=== PATIENT | female | born 1995 | race Hispanic/Latino ===

== ENCOUNTER 2018-09-10 14:30 | Emergency (ER) | payer BC ==
--- NOTE | 2018-09-10 16:01 | ULT ---
PELVIC SONOGRAM WITH TRANSVAGINAL IMAGING AND DUPLEX EVALUATION: HISTORY: Vaginal bleeding. FINDINGS: The urinary bladder is decompressed. The uterus is retroverted with a heterogeneous echotexture and measures up to 7.7 cm. The endometrium is 1.9 cm. No free fluid. The right ovary is 3.5 cm and the left is 3.3 cm. Each contains follicles and demonstrates good colo r and spectral Doppler flow. IMPRESSION: Retroverted uterus. Thickened endometrium (1.9 cm). No evidence of intrauterine gestation. No othe r significant abnormalities. POS: [facility]
--- NOTE | 2018-09-11 00:07 | CON ---
DATE OF CONSULTATION: 09/10/2018 CHIEF COMPLAINT: Vaginal bleeding with positive test. HISTORY OF PRESENT ILLNESS: The patient is a 22-year-old G2, P1 female with a positive test last Monday, who is presenting with a 1-day history of vaginal bleeding. The patient was transferred from [place] to [facility] for further evaluation and concern of a possible ectopic. For this purpose, IMAGING TECH was consulted. The patient reports that she had a positive test on Monday and came in because she started having some bleeding and mild abdominal pain that has resolved since the time of my evaluation. She reports that during her ER visit, she started having some increased pelvic cramping and went to the bathroom and passed some tissue and now is feeling much better. She denies any significant pain. She denies nausea, vomiting, illness, fever, trauma, fall, headache, chest pain , or dizziness. PAST MEDICAL HISTORY: Negative. PAST SURGICAL HISTORY: She had a vaginal abscess and a cyst removed from her right chest. SOCIAL HISTORY: Denies drug, alcohol, or tobacco use. ALLERGIES: NO KNOWN DRUG ALLERGIES. MEDICATIONS: None. PHYSICAL EXAMINATION: VITAL SIGNS: Blood pressure 109/78, pulse is 75, respiratory rate of 18, temperature 99, pain 0. GENERAL: She appears to be in no acute distress. She is alert and oriented, cooperative, and pleasant to interact with. HEENT: Head is normocephalic, atraumatic. LUNGS: Clear to auscultation bilaterally. HEART: Regular rate and rhythm. ABDOMEN: Soft and nontender to light or deep palpation in her abdomen and pelvis. EXTREMITIES: Nontender and nonedematous. : Exam has been deferred. She did show the tissue that was passed at that time just prior to my evaluation, which is difficult to assess whether it is products of conception or endometrium. LABORATORY DATA: quant hcg is 7000. White count is 5.2, hemoglobin 13.8, hematocrit 41.5, platelets of 239,000. Pelvic ultrasound demonstrates a retroverted uterus measuring up to 7.7 cm with an endometrium of 1.9 cm and no free fluid. Shows a right ovary of 3.5 cm, left ovary of 3.3 cm, both containing follicles and no other pelvic mass is seen. No free fluid seen. ASSESSMENT AND PLAN: The patient is a 22-year-old female with an abnormal and likely an incomplete AB in the process of spontaneous completion. The patient at the time of my evaluation, had no symptoms of pain. She is having bleeding like a period. She reported she had some increasing cramping that resolved after passing some tissue. The tissue has been sent to Pathology for review. The patient has been given the option given her lack of symptoms of discharge home with expectant management to follow up in 2 days for quantitative HCG or to return should she begin experiencing strong pelvic pain versus observation here in the hospital overnight for serial exams. The patient has opted to go home. She reports that she will get back should she have worsening abdominal pain. She also has agreed to follow up in a couple of days for quantitative HCG there in [place] and will be contacting Dr. Fuentes for previous OB for followup. Job ID: [id number] [facility] SYSTEMHannah
== END 2018-09-10 17:45 | disposition home or self-care (01) ==
LOC: ERS 14:30
DX: O20.0 Threatened abortion (principal); Z3A.01 Less than 8 weeks gestation of pregnancy
CPT/HCPCS: 76856; 88305

== ENCOUNTER 2019-10-04 21:38 | Inpatient (IN) | payer BC ==
[2019-10-04 22:20] VITALS: BMI 23.2
[2019-10-04] MEDS: Lactated Ringer's 1,000 ML IV SCH (22:30)
[2019-10-04] MEDS ORDERED: Promethazine HCl 25 MG/ML VIAL IM PRN (22:35)
[2019-10-04] MEDS ORDERED: Ibuprofen 800 MG TAB PO PRN (22:35)
[2019-10-04] MEDS ORDERED: Acetaminophen 500 MG TAB PO PRN (22:35)
[2019-10-04] MEDS ORDERED: hydrALAZINE 20 MG/ML VIAL SLOW IVP PRN (22:35)
[2019-10-04] MEDS ORDERED: Butorphanol Tartrate 1 MG/ML VIAL SLOW IVP PRN (22:35)
[2019-10-04] MEDS ORDERED: NS / Oxytocin 40 units/1000ml 1,000 ML IV PRN (22:35)
[2019-10-04] MEDS ORDERED: Ondansetron PF 4 MG/2 ML Vial IVP PRN (22:35)
[2019-10-04] MEDS ORDERED: Lidocaine 1% (PF) 30 ML VIAL SC PRN (22:35)
[2019-10-04] MEDS ORDERED: NS w/ Oxytocin 10 units 500 ML IV SCH (22:45)
[2019-10-04 23:28] LABS: Hemoglobin 13.3 g/dL (12.0-16.0); Mean Corpuscular Hemoglobin 30.4 pg (27.0-31.0); Mean Corpuscular Volume 87.1 fL (78.0-98.0); Mean Platelet Volume 6.6 fL (7.4-10.4); Platelet Count 184 thou/uL (130-400); RBC Distribution Width 12.5 % (11.5-14.5); Red Blood Cell (RBC) Count 4.38 mill/uL (4.20-5.40)
[2019-10-05 00:06] LABS: HBSAg Index 0.16 S/CO (0-0.99); Hep B Surf Ag Non-Reactive S/CO (NonReactive); Syphilis Antibody Nonreactive (Nonreactive); Syphilis Antibody Index 0.09 S/CO (<1.00 Non-Reactive)
--- NOTE | 2019-10-05 01:40 | PDOC.FPROB ---
FMR OB H&P: HPI - History of Present Illness Chief Complaint: Leaking of fluid Indentification: 23 year old at 38.3 wks History of Present Illness: 23 year old at 38.3 wks by LMP/13.2 wk alize presents with SROM, clear fluid at 8:30 PM on 10/04. Patient denies vaginal bleeding, vaginal discharge. Endorses leaking of fluid. Endorses occasional contractions. Primary Care Physician: Alfredo FMR OB H&P: Current - Care : 3 Para: [id number] Gestational age: 38.3 wks Due date: 10/16/2019 Dating Criteria: LMP/13.2 wk sono - OB Labs Blood type: B RH: positive Antibody Screen: negative HIV: negative RPR: negative HepBsAg: negative Rubella: immune Urine drug screen: negative 1 hour gtt: 107 GBS: negative FMR OB H&P: History - Past Medical History PMH: Denies - OB History OB History: Hx SAB - [employer] History [employer] History: Denies history of STD's Cyst removal 2015 - Surgical History Sx History: Cyst removal 2015 - Social History Social History: Denies alcohol, tobacco, or drug use FMR OB H&P: Medications - Current Allergies/Adverse Reactions: Allergies Allergy/AdvReac Type Severity Reaction Status Date / Time No Known Allergies Allergy Verified 10/04/19 22:21 FMR OB H&P: ROS - Review of Systems General: denies: fever/chills, weight/appetite/sleep changes ENT: denies: nasal congestion, sore throat Cardiovascular: denies: chest pain, palpitation, edema Respiratory: denies: cough, congestion, shortness of breath Gastrointestinal: denies: nausea, vomiting Genitourinary (Female): reports: other (Loss of fluid). denies: dysuria, vaginal bleeding Musculoskeletal: denies: pain, stiffness Neurologic: denies: numbness, syncope Integumentary: denies: itching, rash Psychological: denies: depression, anxiety FMR OB H&P: Vital Signs - Maternal Vital signs: Vital Signs - First Documented Temp Pulse Resp BP Pulse Ox 98.2 F 78 16 118/72 99 10/04/19 21:58 10/04/19 21:58 10/04/19 21:58 10/04/19 21:58 10/04/19 21:58 - Heart Tones Baseline: 140 Variability: moderate Acceleration: present Deceleration: absent Category: category 1 Vivian contractions every: Q1-4 min FMR OB H&P: Physical Exam - Physical Exam General: NAD, awake, alert and oriented HEENT: MMM, grossly normal vision, grossly normal hearing Heart: RRR, pulses present General: no respiratory distress Abdomen: soft, gravid Musculoskeletal: pulses present, FROM in all four extremities Neurological: no tremor, no focal deficit Skin: no rash, capillary refill <2 seconds Psychiatric: intact recent and remote memory, good judgement and insight, normal mood and affect - Pelvic Exam SVE: /0 Presentation: Cephalic FMR OB H&P: Results - Labs Lab results: Laboratory Results - last 24 hr 10/04/19 10/04/19 10/04/19 23:05 23:05 23:05 WBC RBC Hgb Hct MCV MCH MCHC RDW Plt Count MPV Syphilis IgG/IgM Ab Nonreactive Hep Bs Antigen Non-Reactive Blood Type B POSITIVE Antibody Screen NEGATIVE 10/04/19 23:05 WBC 12.0 H RBC 4.38 Hgb 13.3 Hct 38.1 MCV 87.1 MCH 30.4 MCHC 35.0 RDW 12.5 Plt Count 184 MPV 6.6 L Syphilis IgG/IgM Ab Hep Bs Antigen Blood Type Antibody Screen FMR OB H&P: A/P - Problem List (1) Premature rupture of membranes Current Visit: Yes Status: Acute Code(s): O42.90 - FELIX ROM, 7TH0 BETW RUPT & ONST LABR, UNSP WEEKS OF GEST (2) Term Current Visit: Yes Status: Acute Code(s): Z34.90 - ENCNTR FOR SUPRVSN OF NORMAL , UNSP, UNSP TRIMESTER Disposition: 23 year old at 38.3 wks by LMP/13.2 wk sono PROM - Admit to L&D - Term IUP - Rupture at 20:30 on 10/04, clear fluid - Category I strip - Expectant management; augmentation if needed - GBS negative TIUP - Plan as above - No complications in current Dispo: Admit to L&D. Expectant management. Discussion: Date/Time: 10/05/19 0139 This H&P was discussed with Dr. Perales/Alfredo who agree with the above documentation and plan. Signature: Gavi Valadez, DO PGY-3
[2019-10-05] MEDS ORDERED: Fentanyl 4 mcg/Bup 0.1% Cadd 100 ML ONE (04:55)
[2019-10-05] MEDS ORDERED: Acetaminophen 325 MG TAB PO PRN (05:33)
[2019-10-05] MEDS ORDERED: ePHEDrine/0.9% NaCl/PF SYRINGE 50 mg/10 ml SLOW IVP PRN (05:33)
[2019-10-05] MEDS ORDERED: Naloxone HCl 0.4 mg/ml Vial IVP PRN ×2 (05:33)
[2019-10-05] MEDS ORDERED: diphenhydrAMINE 50 MG/ML VIAL IVP PRN (05:33)
[2019-10-05] MEDS ORDERED: Lactated Ringer's 500 ML IV PRN (05:33)
[2019-10-05] MEDS ORDERED: Ondansetron PF 4 MG/2 ML Vial IVP PRN ×2 (05:33→07:40)
[2019-10-05] MEDS ORDERED: Promethazine HCl 25 MG/ML VIAL IM PRN ×2 (05:33→07:40)
[2019-10-05] MEDS ORDERED: Fentanyl 4 mcg/Bupivacaine 0.1% Cassette 100 ML EPIDURAL SCH (05:45)
[2019-10-05] MEDS ORDERED: Communication Order-Pharmacy FS SCH (05:45)
[2019-10-05] MEDS ORDERED: Adacel (T-DAP) 0.5 ML SYRINGE IM ONE (07:40)
[2019-10-05] MEDS ORDERED: Benzocaine-Menthol 82.5 ML CAN TOP PRN (07:40)
[2019-10-05] MEDS ORDERED: hydrALAZINE 20 MG/ML VIAL SLOW IVP PRN (07:40)
[2019-10-05] MEDS ORDERED: diphenhydrAMINE 25 MG CAP PO PRN (07:40)
[2019-10-05] MEDS ORDERED: Preparation H Ointment 28 GM TUBE PR PRN (07:40)
[2019-10-05] MEDS ORDERED: Lanolin Ointment 7 GM TUBE TOP PRN (07:40)
[2019-10-05] MEDS ORDERED: HYDROcodone/Acetaminophen 5/325 mg Tablet PO PRN (07:40)
[2019-10-05] MEDS ORDERED: Milk Of Magnesia 30 ML UDCUP PO PRN (07:40)
[2019-10-05] MEDS ORDERED: Bisacodyl 10 MG SUPP PR PRN (07:40)
[2019-10-05] MEDS ORDERED: NS / Oxytocin 40 units/1000ml 1,000 ML IV SCH (07:40)
[2019-10-05] MEDS: Ferrous Sulfate 325 MG TAB PO SCH ×2 (12:09→16:59)
[2019-10-05] MEDS: Docusate Calcium (SURFAK) 240 MG CAP PO SCH ×2 (12:09→21:38)
[2019-10-05] MEDS: Prenatal Vitamin 1 TAB PO SCH (12:10)
[2019-10-05] MEDS: HYDROcodone/Acetaminophen 5/325 mg Tablet PO PRN ×2 (12:21→16:57)
[2019-10-05] MEDS: Ibuprofen 800 MG TAB PO SCH ×2 (14:05→21:38)
[2019-10-05] MEDS: Lactated Ringer's 1,000 ML IV SCH (22:06)
[2019-10-06] MEDS: Ibuprofen 800 MG TAB PO SCH ×3 (04:15→20:31)
[2019-10-06] MEDS: Docusate Calcium (SURFAK) 240 MG CAP PO SCH ×2 (08:00→20:31)
[2019-10-06] MEDS: Prenatal Vitamin 1 TAB PO SCH (08:00)
[2019-10-06] MEDS: HYDROcodone/Acetaminophen 5/325 mg Tablet PO PRN (08:01)
[2019-10-06] MEDS: Ferrous Sulfate 325 MG TAB PO SCH ×2 (08:02→17:19)
[2019-10-06 20:10] VITALS: BP 110/65; TEMP 98.6
== END 2019-10-06 20:55 | disposition home or self-care (01) | DRG 807 ==
LOC: L&D/OP 21:38 → L&D 23:32 → 3SW 10-05 09:43
PROVIDERS: ADMIT Family Medicine; ATTEND Family Medicine
PROC: 10E0XZZ Delivery of Products of Conception, External Approach (ICD-10-PCS; principal; 2019-10-04)
DX: O69.81X0 Labor and delivery complicated by cord around neck, without compression, not applicable or unspecified (principal); Z37.0 Single live birth; Z3A.38 38 weeks gestation of pregnancy; O42.92 Full-term premature rupture of membranes, unspecified as to length of time between rupture and onset of labor; O76 Abnormality in fetal heart rate and rhythm complicating labor and delivery
CPT/HCPCS: 36415; 85027; 86780; 86850; 86900; 86901; 87340; 99285; J2590